=== PATIENT | male | born 1965 | race Caucasian/White ===

== ENCOUNTER → 2016-03-27 | Outpatient (CLI) | payer OTHER ==
[~2016-03-27] MED LIST: AMLO5TAB2 PO; ATEN50TA PO; GABA-586 PO; HYDR-971 PO; IBUP-1060 PO; LOSA1TAB18 PO; TEMA30CA PO
--- NOTE | 2016-03-27 15:56 | PAIN ---
DATE OF SERVICE: 03/27/2016 PROGRESS NOTE DIAGNOSES: Cervical radiculopathy with cervical degenerative disk disease and cervical spinal stenosis. HISTORY OF PRESENT ILLNESS: The patient is a 50-year-old male who returns for followup status post cervical epidural steroid injection x 1. The patient reports about 50% improvement overall. The patient reports he did very well initially, the pain is still present though in the base of the neck and right upper extremity, worse in the morning. The patient reports it comes and goes now, he feels he aggravated over the past few days as he was doing a lot of yard work at home and driving, which exacerbates the pain. Otherwise, the patient reports some days he does not feel the pain at all. He is still taking hydrocodone, one to two a day, which does help without side effects. The patient reports no new motor or sensory deficits, no new complaints. The patient reports his pain at 2 on a scale of 10 currently. The patient's old chart was reviewed as his current medication regimen updated. Current review of systems updated today as well. PHYSICAL EXAMINATION: VITAL SIGNS: Today, the patient's blood pressure 130/95, pulse 75, respirations 20, temperature is 98.0 degrees Fahrenheit, and weight is 200 pounds. GENERAL: The patient is awake, alert, oriented, appropriate, very pleasant demeanor. HEENT: Shows normocephalic, atraumatic. Extraocular movements are intact and symmetrical. Oral cavity shows mucous membranes are moist and pink. NECK: Shows anterior throat supple. CHEST: Shows breath sounds clear to auscultation bilaterally. HEART: Shows S1 and S2 clear. ABDOMEN: Soft, nontender, and nondistended. BACK: Shows spine grossly in midline. Cervical paraspinous muscle shows some moderate tenderness to palpation in the inferior aspect of the cervical paraspinous musculature, but only diffusely and appears roughly symmetrical. EXTREMITIES: The patient's upper extremities show deep tendon reflexes at 2+ in the biceps and triceps tendons. 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 PLAN: Options were discussed with the patient. We will hold on further injections at this time. He would like to wait. We will try another Medrol Dosepak as he did very well with this initially. The patient becomes very lightheaded and dizzy during injections of any kind with his history and would like to hold off on this if possible. I have encouraged the patient to increase his activity as tolerated, keep doing stretching and strengthening exercises with his neck, upper extremities and shoulders and follow up after the Medrol Dosepak is completed. If not significantly improved, we may perform second cervical epidural steroid injection at that time. EMILI HARPER MD DR: JONNIE/zoraida JOB#: [id number] / [id number]
== END | disposition home or self-care (01) ==
LOC: PNCL 07:49
PROVIDERS: ATTEND Anesthesiology
DX: M50.10 Cervical disc disorder with radiculopathy, unspecified cervical region (principal); M48.02 Spinal stenosis, cervical region
CPT/HCPCS: 99212

== ENCOUNTER → 2017-01-09 | Outpatient (CLI) | payer OTHER ==
[~2017-01-09] MED LIST changes: -LOSA1TAB18 PO; +LOSA1TAB25 PO
--- NOTE | 2017-01-09 11:43 | KCIC ---
EXAM: Right foot, 3 views HISTORY: Lateral pain. COMPARISON: None. FINDINGS: Frontal, lateral and oblique views of the right foot are obtained. There is no fracture, dislocation or subluxation. The alignment and joint spaces. There is a small corticated ossicle inferior to the lateral malleolus, likely the sequela of remote injury. IMPRESSION: No acute osseous finding. Electronically signed by: Blanca Loomis MD (01/09/2017 11:39 AM) [facility]
== END | disposition home or self-care (01) ==
LOC: KCIC 11:05
PROVIDERS: ATTEND Physician Assistant Medical
DX: M79.671 Pain in right foot (principal)
CPT/HCPCS: 73630

== ENCOUNTER → 2018-08-06 | Outpatient (CLI) | payer OTHER ==
[~2018-08-06] MED LIST changes: +AMLO5TAB10 PO; -AMLO5TAB2 PO; +ATOR10TA60 PO; -GABA-586 PO; +GABA300C18 PO; +HYDR-3164 PO; -HYDR-971 PO
--- NOTE | 2018-08-06 16:29 | KCIC ---
MRI Lumbar Spine without contrast History: Right sciatica, low back pain Technique: Multiplanar, multi sequential noncontrast MR imaging was performed of the lumbar spine. Comparison: None Findings: Other than multilevel Schmorl's nodes, vertebral body stature is maintained. AP alignment is within normal limits. Conus terminates at the inferior aspect of L1. There is minimal edema associated with inferior L3 Schmorl's node, otherwise no significant marrow edema. There is [id number] degenerative disc disease at L5-S1, minimally L2-3. L2-L3: There is minimal disc osteophyte complex, superimposed shallow protrusion in the right lateral recess about 2-3 mm AP, very mild narrowing of the far right lateral recess. There is mild buckling of the ligamentum flavum. Neural foramina are adequate. There is anterior annular tear. L3-L4: There is mild buckling of the ligamentum flavum and facet degenerative change. There is negligible disc osteophyte complex. There is very mild inferior narrowing of left neural foramen, right neural foramen adequate. Spinal canal is adequate. L4-L5: There is minimal disc osteophyte complex, greater in the inferior left neural foramen. There is minimal narrowing of left neural foramen, very mild narrowing of the right neural foramen. Spinal canal is adequate. There is mild buckling of the ligament flavum. L5-S1: There is disc osteophyte complex relatively greater in the inferior neural foramina bilaterally. Spinal canal is adequate. There is mild facet hypertrophic change. There is moderate to severe neural foramina compromise bilaterally primarily from disc osteophyte complex with impingement of the exiting L5 nerve roots bilaterally somewhat greater on the right. Impression: 1. There is moderate to severe bilateral L5-S1 neural foramina compromise primarily from disc osteophyte complex with contact of the exiting L5 nerve roots bilaterally somewhat greater on the right. 2. There is multilevel spondylosis. There is [id number]-[id number] degenerative disc disease at L5-S1 and minimally at L2-3. 3. There is no significant lumbar spinal stenosis, very mild narrowing of the far right lateral recess at L2-3. Electronically signed by: Osmani Herrera MD (08/06/2018 4:26 PM) [facility]
== END | disposition home or self-care (01) ==
LOC: KCIC MRI 15:37
PROVIDERS: ATTEND Physician Assistant Medical
DX: M51.37 Other intervertebral disc degeneration, lumbosacral region (principal); M51.26 Other intervertebral disc displacement, lumbar region; M48.061 Spinal stenosis, lumbar region without neurogenic claudication; M47.816 Spondylosis without myelopathy or radiculopathy, lumbar region; M51.46 Schmorl's nodes, lumbar region; M25.78 Osteophyte, vertebrae; M89.38 Hypertrophy of bone, other site
CPT/HCPCS: 72148

== ENCOUNTER → 2018-08-20 | Outpatient (CLI) | payer OTHER ==
[~2018-08-20] MED LIST changes: +IOHEXOL 180 MG/ML 10 ML VIAL. ONE; +methylPREDNISolone ACETATE 40 MG/ML VIAL. ONE; +methylPREDNISolone ACETATE 80 MG/ML VIAL. ONE
--- NOTE | 2018-08-21 03:48 | PAIN ---
DATE OF SERVICE: 08/20/2018 INITIAL CONSULTATION FOR PAIN CLINIC: CHIEF COMPLAINT: Low back and right lower extremity pain. HISTORY OF PRESENT ILLNESS: This is a 53-year-old male who presents with history of pain, low back, right lower extremity in the posterior gluteus, posterior thigh, posterior calf, some in the anterior aspect of the leg too, mostly in the posterior, radiating for about the last 4 months or so. The patient reports it increased without any specific injury or accident that he is aware of, came up with time and is now getting much worse. The patient has done some physical therapy for about 6 weeks prior to today's appointment and reports no significant decrease in pain. The patient reports his pain is throbbing and constant across low back and radiating to the lower extremity, also constant cramping and aching, sometimes shooting and stinging pain as well. The patient reports it does not awaken him from sleep at night, he feels better with sitting or lying down, but standing is his main complaint, with walking the pain is slightly less but still significant. He has significant fatigue in the right lower extremity with ambulation. The patient reports no symptoms in the left lower extremity. The patient reports it does not affect his ability to walk significantly, but he has fatigability and does start to favor his right leg, has to stop and rest for about 15 minutes or it can increase the pain and if he stops and rests for about 5 minutes, it will decrease the pain if he sits down. The patient reports no loss of motor function, but again significant fatigability of the right leg. The patient rates his disability rate from 0-10, 10 being the worst, family and home responsibilities from 1 to an 8, 8 on recreation, 1 with social activity, occupation and sexual behavior, self-care and 0 with life support activities. The patient did have MRI scan of the lumbar spine showing moderate to severe bilateral L5-S1 neural foraminal compromise primarily from disk osteophyte complex with contacting exiting L5 nerve roots bilaterally, somewhat greater on the right side. PAST MEDICAL HISTORY: Significant for hypertension and arthritis. PREVIOUS SURGERY: Include a left knee scope. FAMILY HISTORY: Significant for no major medical problems or conditions he is aware of. SOCIAL HISTORY: The patient drinks alcohol 3 or 4 once every 3 or 4 months, does not smoke, is not using illegal, illicit or recreational drugs, does use chewing tobacco and has for about 12 years. The patient is single. Lives locally in [place], [place]. CURRENT MEDICATIONS: Include fish oil, losartan, amlodipine, atenolol, temazepam, Wellbutrin, atorvastatin, cyclobenzaprine, Mobic, gabapentin, and vitamins. ALLERGIES: The patient has no known drug allergies. REVIEW OF SYSTEMS: The patient's review of systems is positive for those items mentioned in history of present illness. All systems reviewed and otherwise negative. It is complete, full and well documented on the patient's chart. PHYSICAL EXAMINATION: VITAL SIGNS: The patient's blood pressure is 119/84, pulse 63, respirations are 18, temperature 98.4 degrees Fahrenheit, height is 5 feet 11 inches, weight is 212 pounds. GENERAL: The patient is awake, alert, oriented, appropriate, very pleasant demeanor. HEENT: Head shows normocephalic, atraumatic. Extraocular movements are intact and symmetrical. Oral cavity: Mucous membranes moist and pink. Dentition is intact. NECK: Shows anterior throat supple without palpable lymphadenopathy noted. Swallow reflex symmetrical. CHEST: Shows normal with inspection. Breath sounds clear to auscultation bilaterally. HEART: Shows S1, S2 clear. No murmurs auscultated. ABDOMEN: Soft, nontender, nondistended. No palpable organomegaly is noted. No rebound or guarding demonstrated. BACK: Shows spine grossly in the midline. Normal appearing thoracic kyphosis and lumbar lordotic curvature. Lumbar paraspinous muscle shows symmetrical on inspection, with palpation shows some moderate tenderness diffusely without specific radiation. No atrophy or hypertrophy. The patient has good rotational motion of lumbar spine, both laterally greater than 10 degrees right and left as well as extension greater than 10 degrees, forward flexion 45 degrees without difficulty or pain reported. EXTREMITIES: Lower extremities show deep tendon reflexes 2+ in the patellar, 1+ tendo-calcaneus tendons. Motor exam is strong with 5/5 dorsiflexion, extension, quadriceps and hamstring flexion equal. Peripheral pulses are 1+ posterior tibial. No peripheral edema is noted. Lower extremities are warm and dry to touch, equal in color and appearance. The patient does have a slight positive straight leg raise on the right at about 45 degrees with pain in the posterior thigh and knee with decrease at knee flexion. Left side is negative. The patient is able to stand, stand on his toes without difficulty or loss of balance. The patient's skin shows warm and dry, good turgor. No edema. No sores, rashes or bruising throughout. IMPRESSION: 1. This is a 53-year-old male with about 4-month history of increasing pain, low back, right lower extremity in a radicular fashion. 2. MRI scan of lumbar spine as noted. 3. Hypertension. 4. Arthritis. PLAN: Options were discussed with the patient including conservative medical management, physical therapy, and interventional technique. He would like to pursue with interventional techniques. We discussed a lumbar epidural steroid injection using description as well as anatomical models to describe the procedure. Risks were then discussed including, but not limited to bleeding, infection, possibility of epidural hematoma, subsequent neurologic compromise, dural puncture headaches, spinal cord and/or nerve damage, side effects of steroid medication and poor results regarding pain control. The patient understands and wished to proceed. The patient will return to clinic in approximately 2 weeks for followup, was counseled as to return appointment, activity level and side effects to be aware of. DIAGNOSES: Lumbar radiculopathy with lumbar degenerative disk disease and lumbar spondylosis. PROCEDURE: Lumbar epidural steroid injection, translaminar approach L5-S1 level using C-arm fluoroscopic guidance under sterile prep and drape using local anesthetic. MEDICATION INJECTED: A total of 120 mg Depo-Medrol plus 10 mL of preservative-free normal saline and 2 mL of contrast. CONDITION AT DISCHARGE: Stable. The patient tolerated the procedure well, had no complications. EMILI HARPER MD DR: JONNIE/zoraida JOB#: [id number] / [id number] Yifan Jay MD
== END ==
LOC: PNCL 10:18
PROVIDERS: ATTEND Anesthesiology
DX: M51.16 Intervertebral disc disorders with radiculopathy, lumbar region (principal); M47.26 Other spondylosis with radiculopathy, lumbar region; I10 Essential (primary) hypertension; Z87.39 Personal history of other diseases of the musculoskeletal system and connective tissue
CPT/HCPCS: 62323; J1030; J1040; Q9965

== ENCOUNTER → 2018-10-22 | Outpatient (CLI) | payer OTHER ==
[~2018-10-22] MED LIST changes: +TEMA7.5C PO
--- NOTE | 2018-10-23 00:54 | PAIN ---
DATE OF SERVICE: 10/22/2018 DIAGNOSIS: Lumbar radiculopathy with lumbar degenerative disk disease, lumbar spondylosis. HISTORY OF PRESENT ILLNESS: The patient is a 53-year-old male who returns for followup status post steroid injection x 1. The patient reports only minimal decrease in pain in the low back and in his right lower extremity. The patient reports he was doing some heavy wood cutting now after the injection about 3 days later or so and the pain would never really resolve. The patient reports that the radiating pain is constant and aching in the low back, right lower extremity, posterior gluteus, posterior thigh, posterior calf into the ankle on the right side. The patient reports anywhere from 3-6 on a scale of 10 at its worst over the past week and average, and 1 at its least, and is at 5 today. The patient reports no new motor or sensory deficits. No new bowel or bladder incontinence or other complaints, still better with sitting or lying down, does not awaken him from sleep at night. We tried a Medrol Dosepak in the meantime since he was here last on 08/20. This was not helpful as well. PHYSICAL EXAMINATION: VITAL SIGNS: The patient's blood pressure 120/85, pulse 66, respirations 16, temperature 98.4 degrees Fahrenheit, weight is 208 pounds. GENERAL: The patient is awake, alert, oriented, appropriate, very pleasant demeanor. HEENT: Head shows normocephalic, atraumatic. Extraocular movements are intact and symmetrical. Oral cavity: Mucous membranes moist and pink. Dentition is intact. NECK: Shows anterior throat supple without palpable lymphadenopathy noted. Swallow reflex symmetrical. CHEST: Shows normal on inspection. Breath sounds clear to auscultation bilaterally. HEART: Shows S1, S2 clear. No murmurs auscultated. ABDOMEN: Soft, nontender, nondistended. No palpable organomegaly is noted. No rebound or guarding demonstrated. BACK: Shows spine grossly in the midline. Normal appearing thoracic kyphosis and lumbar lordotic curvature. Lumbar paraspinous muscle shows symmetrical on inspection, on palpation shows some moderate tenderness diffusely in the lower lumbar distribution, but only diffusely without radiation. The patient has good rotational motion of lumbar spine, both laterally as well as extension and flexion without difficulty. EXTREMITIES: Lower extremities show deep tendon reflexes 2+ in the patellar, 1+ tendo-calcaneus tendons. Motor exam is 5/5 with dorsiflexion, extension and symmetrical as is quadriceps and hamstring flexion. Peripheral pulses are 1+ in posterior tibia. No peripheral edema is noted. Options were discussed with the patient. The patient's old chart was reviewed and his current medication regimen updated. Current review of systems updated today as well. We will proceed with a second in the series of lumbar epidural steroid injection today with fluoroscopic guidance. Risks were again discussed including, but not limited to bleeding, infection, possibility of epidural hematoma, subsequent neurologic compromise, dural puncture, headaches, spinal cord and/or nerve damage, side effects of steroid medication and poor results regarding pain control. The patient understands and wished to proceed. The patient will return to the clinic in approximately 2 weeks for followup. He was counseled on return appointment, activity level and side effects to be aware of. DIAGNOSES: Lumbar radiculopathy with lumbar degenerative disk disease, lumbar spondylosis. PROCEDURE: Lumbar epidural steroid injection, translaminar approach L5-S1 level using C-arm fluoroscopic guidance under sterile prep and drape using local anesthetic. MEDICATION INJECTED: A total of 120 mg Depo-Medrol plus 10 mL of preservative-free normal saline and 2 mL of Isovue for contrast. CONDITION AT DISCHARGE: Stable. The patient tolerated the procedure well, had no complications. EMILI HARPER MD DR: JONNIE/zoraida JOB#: [id number] / [id number]
== END ==
LOC: PNCL 08:29
PROVIDERS: ATTEND Anesthesiology
DX: M51.16 Intervertebral disc disorders with radiculopathy, lumbar region (principal); M47.816 Spondylosis without myelopathy or radiculopathy, lumbar region
CPT/HCPCS: 62323; J1030; J1040; Q9965

== ENCOUNTER → 2018-11-05 | Outpatient (CLI) | payer OTHER ==
--- NOTE | 2018-11-05 22:46 | PAIN ---
DATE OF SERVICE: 11/05/2018 DIAGNOSES: Lumbar radiculopathy with lumbar degenerative disk disease, lumbar spondylosis. HISTORY OF PRESENT ILLNESS: The patient is a 53-year-old male who returns for followup status post lumbar epidural steroid injection x 2. The patient reports about 50% improvement overall, took a few days for the pain to decrease, but then it was quite a bit improved. The patient has increased his activity of walking doing greater distances and standing for longer periods, sleeping well at night, the patient reports it does not awaken him from sleep. The patient reports pain in the low back and right lower extremity as it was previously posterior gluteus, posterior thigh, posterior calf into the ankle on the right side. The patient rates it is 3 on a scale of 10 and it is worst over the past week, 2 on average, 0 at its least and is 2 today. The patient reports no new motor or sensory deficits, no new bowel or bladder incontinence or other complaints, but still significant pain in the back and the leg. PHYSICAL EXAMINATION: Vital Signs: The patient's blood pressure is 123/83, pulse 65, respirations 16, temperature is 98.2 degrees Fahrenheit, height is 5 feet 11 inches and weight is 210 pounds. General: The patient is awake, alert, oriented, appropriate, very pleasant demeanor. HEENT: Head shows normocephalic, atraumatic. Extraocular movements are intact and symmetrical. Oral cavity: Mucous membranes moist and pink. Dentition is intact. Neck: Shows anterior throat supple without palpable lymphadenopathy noted. Swallow reflex symmetrical. Chest: Shows normal on inspection. Breath sounds clear to auscultation bilaterally. Cardiac: Shows S1, S2 clear. No murmurs auscultated. Abdomen: Soft, nontender, nondistended. No palpable organomegaly is noted. No rebound or guarding demonstrated. Back: Shows spine grossly in the midline. Extremities: The patient's lower extremities show deep tendon reflexes 2+ in the patellar, 1+ tendo-calcaneus tendons. Motor exam is strong with 5/5 dorsiflexion, extension, quadriceps and hamstring flexion is symmetrical. Peripheral pulses are 1+ posterior tibia. No peripheral edema is noted bilaterally. Options were discussed with the patient. The patient's old chart was reviewed as his current medication regimen updated. Current review of systems updated today as well. We will proceed with a third in the series of lumbar epidural steroid injection today with fluoroscopic guidance. Risks were again discussed including, but not limited to bleeding, infection, possibility of epidural hematoma, subsequent neurologic compromise, dural puncture, headaches, spinal cord and/or nerve damage, side effects of steroid medication and poor results regarding pain control. The patient understands and wished to proceed. The patient will return to clinic in approximately 2 weeks for followup. He was counseled as to return appointment, activity level and side effects to be aware of. DIAGNOSIS: Lumbar radiculopathy with lumbar degenerative disk disease and lumbar spondylosis. PROCEDURE: Lumbar epidural steroid injection, translaminar approach at the L5-S1 level using C-arm fluoroscopic guidance under sterile prep and drape using local anesthetic. MEDICATION INJECTED: A total of 120 mg Depo-Medrol plus 10 mL of preservative-free normal saline and 2 mL of contrast. CONDITION AT DISCHARGE: Stable. The patient tolerated the procedure well, had no complications. EMILI HARPER MD DR: JONNIE/zoraida JOB#: [id number] / [id number]
== END ==
LOC: PNCL 13:36
PROVIDERS: ATTEND Anesthesiology
DX: M51.16 Intervertebral disc disorders with radiculopathy, lumbar region (principal); M47.816 Spondylosis without myelopathy or radiculopathy, lumbar region
CPT/HCPCS: 62323; J1030; J1040; Q9965